=== PATIENT | male | born 1955 | race Caucasian/White ===

== ENCOUNTER 2025-02-19 17:58 | Emergency (ER) | payer MEDICARE, SELFPAY ==
--- NOTE | ~2025-02-19 | XR_ITS ---
XR chest 2V Ordering provider: Reinaldo Perea MD History: 69 years Male with . chest pain, weakness . Comparison: None. FINDINGS: MEDIASTINUM: The cardiac silhouette is not enlarged. Postoperative changes in the mediastinum. LUNGS: No infiltrates, effusions or pneumothorax. Underlying emphysematous changes. OTHER: No free air under the diaphragm. Degenerative changes of the spine. IMPRESSION: No acute cardiopulmonary pathology. Reviewed, dictated and finalized at location A.
[2025-02-19 17:59] VITALS: BP 122/66; PULSE 75; RESP 16; TEMP 36.4; O2SAT 100
--- NOTE | 2025-02-19 18:05 | ECG_ITS ---
Test Date: 2025-02-19 18:07:31 Measurements Intervals [place] Rate: 72 P: 76 ME: 182 QRS: 5 QRSD: 98 T: 87 QT: 370 QTc: 406 Interpretive Statements SINUS RHYTHM POSSIBLE RIGHT VENTRICULAR CONDUCTION DELAY [RSR (QR) IN V1/V2] NONSPECIFIC T-WAVE ABNORMALITY No previous ECG available for comparison Electronically Signed On 02-20-2025 16:33:13 CDT by Herve Mcgovern M.D.
[2025-02-19 18:29] LABS: Basophils Percent Auto 0.3 % (0.2-1.2); Eosinophils Absolute Auto 0.1 K/mm3 (0-0.3); Eosinophils Percent Auto 2.4 % (0-4.4); Hematocrit 33.7 % (42.0-52.0); Hemoglobin 11.1 g/dL (14.0-18.0); Immature Granulocyte Absolute 0.01 K/mm3 (0.00-0.031); Immature Granulocyte Percent A 0.3 % (0-0.5); Lymphocytes Absolute Auto 1.77 K/mm3 (0.9-3.2); Lymphocytes Percent Auto 52.5 % (18.3-44.2); Mean Corpuscular HGB Conc 32.9 g/dl (32-36); Mean Corpuscular Volume 91.1 fl (80-100); Mean Platelet Volume 9.8 fl (7.4-10.4); Monocytes Absolute Auto 0.2 K/mm3 (0.1-0.6); Monocytes Percent Auto 6.2 % (2.6-8.5); Neutrophils Absolute Auto 1.3 K/mm3 (1.3-6.7); Neutrophils Percent Auto 38.3 % (45.5-73.1); Platelet Count Result 119 k/mm3 (150-375); Red Cell Distribution Width 13.6 % (11.5-14.5); White Blood Count 3.4 K/mm3 (4.5-10.0)
[2025-02-19 18:39] LABS: Alanine Aminotransferase 24 U/L (6-50); Albumin Level 4.7 g/dL (3.5-5.1); Alkaline Phosphatase 50 U/L (38-126); Anion Gap 11 mmol/L (4-12); Aspartate Amino Transferase 40 U/L (17-59); Bilirubin,Total 0.3 mg/dL (0.2-1.3); Blood Urea Nitrogen 41 mg/dL (9-20); Calcium 9.9 mg/dL (8.4-10.2); Carbon Dioxide 22 mmol/L (22-30); Chloride 102 mmol/L (98-107); Estimated Glomerular Filt Rate > 60; Glucose 98 mg/dL (65-110); INR 0.9; Lipase 168 U/L (23-300); Potassium 3.9 mmol/L (3.4-5.0); Prothrombin Time 12.7 Seconds (11.1-14.7); Sodium 135 mmol/L (137-145)
[2025-02-19 18:51] LABS: Troponin I < 0.012 ng/mL (0.000-0.034)
--- NOTE | 2025-02-19 20:39 | ECG_ITS ---
Test Date: 2025-02-19 21:11:47 Measurements Intervals [place] Rate: 71 P: 77 [place]: 174 QRS: 27 QRSD: 99 T: 79 QT: 388 QTc: 424 Interpretive Statements SINUS RHYTHM POSSIBLE RIGHT VENTRICULAR CONDUCTION DELAY [RSR (QR) IN V1/V2] NONSPECIFIC T-WAVE ABNORMALITY Compared to ECG 02/19/2025 18:07:31 NO SIGNIFICANT CHANGES Electronically Signed On 02-20-2025 16:35:43 CDT by Herve Mcgovern M.D.
--- NOTE | 2025-02-19 20:40 | PC.NURSE ---
of patient reporting patient has not had night meds and that patient reporting a little more chest pain. Patient does not appear in any distress. Patient is scheduled for 3hr Trop/ekg shortly. patient and family is aware
[2025-02-19 21:13] VITALS: BP 116/67; PULSE 68; RESP 16; TEMP 36.6; O2SAT 99
[2025-02-19 21:51] LABS: Troponin I < 0.012 ng/mL (0.000-0.034)
--- NOTE | 2025-02-19 22:41 | ED.CHESTPAIN ---
HPI - Chest Pain General Chief Complaint: Chest Pain Stated Complaint: Chest pain Time Seen by Provider: 02/19/25 22:22 History of Present Illness HPI narrative: 69-year-old male with a past medical history including coronary artery disease with a CABG, mild cognitive impairment and dementia as well as hypertension. Patient presents to the emergency department with complains of chest pain that occurred prior to arrival. Patient has a history of dementia not able to articulate very well but his is present at bedside provides collateral formation. It was believed that patient's blood pressure was slightly high in the 150s region today and patient's family called ambulance for assistance as they were concerned he might be having chest pain. Patient was self denies any chest pain or shortness a breath at this time. On my initial assessment the patient he states that he has no symptoms and wishes to go home. He appears at his baseline mentation and acting appropriately according to present at bedside. Patient did yet aspirin prior to arrival although he has a suspected allergy to this he has not had any adverse reactions and observed here for multiple hours. Patient denies any headache, vision changes, chest pain, shortness of breath, nausea, vomiting, abdominal pain, extremity pain. Patient reportedly has a history of dysautonomia and follows up with the [facility] system or his director of physician practices is located. Related Data Allergies Allergy/AdvReac Type Severity Reaction Status Date / Time aspirin Allergy Severe Swelling Verified 02/19/25 18:00 of Lip/Tongue/Throat levofloxacin (From Levaquin) Allergy Intermediate Hives Verified 02/19/25 18:00 Review of Systems Review of Systems: As reviewed above in HPI Exam Narrative: GENERAL: [Well-appearing, well-nourished, and in no acute distress.] HEAD: [Normocephalic, atraumatic.] EYES: [PERRLA and EOMI.] ENT: Nares clear, no rhinorrhea or epistaxis. Mucous membranes moist. NECK: Supple. CHEST: [Clear to auscultation. No respiratory distress.] HEART: [Regular rate and rhythm]. No murmur heard. [Normal peripheral pulses.] ABDOMEN: [Soft, nondistended], [nontender], [No rigidity or guarding] EXTREMITIES: Normal range of motion. [No edema.] SKIN: Warm, dry, no rash. NEURO: [No focal deficits]. Alert and oriented as baseline mentation x3. History of mild cognitive impairment/dementia. Moving all extremities without any difficulty. PSYCH: [Normal mood and affect.] Course Vital Signs Vital signs: Vital Signs Temperature 36.4 C 02/19/25 17:59 Pulse Rate 75 02/19/25 17:59 Respiratory Rate 16 02/19/25 17:59 Blood Pressure 122/66 02/19/25 17:59 Pulse Oximetry 100 02/19/25 17:59 Oxygen Delivery Room Air 02/19/25 17:59 Temperature 36.9 C 02/19/25 22:55 Pulse Rate 87 02/19/25 22:55 Respiratory Rate 18 02/19/25 22:55 Blood Pressure 145/66 H 02/19/25 22:55 Pulse Oximetry 98 02/19/25 23:08 Oxygen Delivery Room Air 02/19/25 23:08 MDM - Chest Pain MDM Narrative Medical decision making narrative: 69-year-old male with a history of cardiac disease including coronary artery disease, bypass grafting, stents, hypertension. He also has a history of mild cognitive impairment and dementia as well as dysautonomia. He follows closely with the [facility] system and his director of physician practices is located across there. Patient reportedly had elevated blood pressure reading in the 150s today and family was concerned that he might be having some chest pain. Patient self denies any complaints such as chest pain, shortness short of breath, abdominal pain. Patient has no symptoms at this time and is expressing desire to go home. He is acting as baseline mentation from his cognitive impairment according to the family member at bedside. Family is well-versed and takes good care of him including giving him his medications schedule. Patient did get aspirin prior to arrival and was observed here for multiple hours without any allergic reaction or anaphylaxis type symptoms. He has no symptomatology at this time on my reassessment and has normal vital signs in triage and on multiple reassessments. No tachycardia, fever, hypoxia. Strong symmetric pulses, no signs of leg swelling. Differential diagnosis includes musculoskeletal chest pain, pleurisy, bronchitis, pneumonia, ACS, angina, less likely PE and his low Wells criteria for this. Multiple troponins were ordered, EKG, chest x-ray, CBC, CMP, lipase. Patient was observed for numerous hours here in the ED. Workup shows no leukocytosis or significant anemia but no baseline to compare to sent in our system. Coagulation panel is normal. Normal electrolytes, normal creatinine, normal glucose, normal LFTs. Negative initial troponin, negative 3 hour troponin negative lipase. His initial EKG and 3 hour EKG showed no signs of acute occlusive [place]. chest x-ray shows no acute cardiopulmonary pathology. Patient re-evaluated and again has no symptomatology. Expressing desire for discharge. Discussed with the family member about close outpatient Cardiology follow-up which they will arrange and felt comfortable going home at this time. There were given strict return precautions including recurrence of his chest pain or any new developing symptoms and encouraged to come back to the ER at that time. Patient safely discharged home at this time and family's questions were answered. Medical Records Data Attestation: I reviewed the patient's medical records. Lab Data Attestation: I reviewed the patient's lab results. 02/19/25 18:12 02/19/25 18:12 Labs: Lab Results 02/19/25 02/19/25 Range/Units 18:12 21:15 WBC 3.4 L (4.5-10.0) K/mm3 RBC 3.70 L (4.6-6.20) M/mm3 Hgb 11.1 L (14.0-18.0) g/dL Hct 33.7 L (42.0-52.0) % MCV 91.1 (80-100) fl MCH 30.0 (26-34) pg MCHC 32.9 (32-36) g/dl RDW 13.6 (11.5-14.5) % Plt Count 119 L (150-375) k/mm3 MPV 9.8 (7.4-10.4) fl Immature Gran % (Auto) 0.3 (0-0.5) % Neut % (Auto) 38.3 L (45.5-73.1) % Lymph % (Auto) 52.5 H (18.3-44.2) % [place] % (Auto) 6.2 (2.6-8.5) % Eos % (Auto) 2.4 (0-4.4) % Baso % (Auto) 0.3 (0.2-1.2) % Lymph # (Auto) 1.77 (0.9-3.2) K/mm3 [place] # (Auto) 0.2 (0.1-0.6) K/mm3 Eos # (Auto) 0.1 (0-0.3) K/mm3 Baso # (Auto) 0.0 (0.0-0.1) K/mm3 Abs Immat Gran (auto) 0.01 (0.00-0.031) K/mm3 Absolute Neuts (auto) 1.3 (1.3-6.7) K/mm3 Absolute Nucleated RBC 0.000 (0.0-0.012) K/mm3 Nucleated RBC % 0.0 (0.0-0.2) % PT 12.7 (11.1-14.7) Seconds INR 0.9 APTT 27.0 (22.3-36.8) Seconds Sodium 135 L (137-145) mmol/L Potassium 3.9 (3.4-5.0) mmol/L Chloride 102 (98-107) mmol/L Carbon Dioxide 22 (22-30) mmol/L Anion Gap 11 (4-12) mmol/L BUN 41 H (9-20) mg/dL Creatinine 0.88 (0.7-1.3) mg/dL Estim Creat Clear Calc Not Reportable Estimated GFR > 60 (59 - ) Glucose 98 (65-110) mg/dL Calcium 9.9 (8.4-10.2) mg/dL Total Bilirubin 0.3 (0.2-1.3) mg/dL AST 40 (17-59) U/L ALT 24 (6-50) U/L Alkaline Phosphatase 50 (38-126) U/L Troponin I < 0.012 < 0.012 (0.000-0.034) ng/mL Total Protein 8.0 (6.3-8.2) g/dL Albumin 4.7 (3.5-5.1) g/dL Lipase 168 (23-300) U/L Imaging Data Attestation: I personally reviewed and interpreted this imaging study as follows: My impression: Impressions Chest X-Ray 02/19/25 18:22 IMPRESSION: No acute cardiopulmonary pathology. ECG Data EKG #1: Attestation: I personally reviewed and interpreted this ECG as follows: ECG completion date: 02/19/25 ECG completion time: 18:07 Prior ECG tracings: not available for review Interpretation: No ST segment elevations, depressions or acute inversions. Normal QTC interval. QTC 406, QRS 98, LA interval 182. Sinus rhythm. Good R-wave progression throughout. No signs of acute occlusive [place]. Discharge Plan Discharge Clinical Impression: Atypical chest pain, History of coronary artery bypass graft Patient Disposition: Home Condition: Stable Instructions: Antibiotic Form, Chest Pain (ED) Additional Instructions: Your cardiac markers, (troponin) was undetectable x2 here in the emergency department. Your EKG did not show any signs of any acute occlusive disease or dysrhythmia. If you have any recurrence in your chest pain or any new symptoms such as shortness of breath, jaw pain, arm pain, passing out episodes or any other concerns please return to the emergency department otherwise follow-up closely with your director of physician practices at [facility]. Take your regular prescribed medications when he gets home and inquire with his director of physician practices about starting aspirin if this is not truly an allergy that you have. Patient Language: Persian Follow-up/Referrals: PHYSICIAN NOT ON STAFF,NONSTAFF [Primary Care Provider] - Time of Disposition: 22:40
--- OUTSIDE RECORDS SUMMARY | 2025-02-19 22:54 | XMS_ITS | Referral Summary ---
Author Organization [facility] Address [address] [place] [id number] Care Team Providers Care Pin Chaser Name Role Phone Kyle Chiu MD Primary Care Provider [phone] Encounters Date Type Department Care Team Description 02/15/2025 Telephone [facility] [address] [place] [address] [address] [place] [address] Kyle Chiu MD Cough 02/12/2025 Results Follow-Up [facility] [address] [place] [address] [address] [place] [address] Aissatou Strong NP CBC with auto differential, Comprehensive metabolic panel, Thyroid Function Stanly, XR Chest PA Lateral 2 Views 02/12/2025 12:00 PM CDT Ancillary Procedure [facility] Imaging at [address] [address] Acute cough 02/12/2025 10:15 AM CDT Office Visit [facility] [address] [place] [address] [address] [place] [address] Aissatou Strong NP Acute cough (Primary Dx); Hypothyroidism, unspecified type; Primary hypertension; Mild intermittent asthma, unspecified whether complicated; Coronary artery disease involving coyote valley coronary artery of coyote valley heart without angina pectoris 02/11/2025 Telephone [facility] [address] [place] [address] 8th [place] [address] [place] [address] Roberto Velásquez MD 01/31/2025 Orders Only [facility] [address] [facility] [address] [place] [address] Kyle Chiu MD Benign prostatic hyperplasia with nocturia (Primary Dx) 01/28/2025 10:40 AM CDT Office Visit [facility] [address] [place] [address] Angelina Orr MD Lower urinary tract symptoms (LUTS) (Primary Dx) 01/21/2025 Telephone [facility] [address] [place] [address] 8th [place] [address] [place] [address] Martha York 01/20/2025 Telephone [facility] [address] [place] [phone] Stephanie Powell MD 01/14/2025 Orders Only [facility] [address] [place] [phone] Kyle Chiu MD 01/03/2025 Telephone [facility] [address] [place] [address] 8th [place] [address] [place] [address] Roberto Velásquez MD 01/02/2025 Orders Only [facility] [address] [facility] [address] [place] [address] Angelina Orr MD Benign prostatic hyperplasia with lower urinary tract symptoms, symptom details unspecified 01/01/2025 4:15 PM CDT [facility] [address] [address] Kyle Chiu MD Coronary artery disease involving coyote valley coronary artery of coyote valley heart without angina pectoris (Primary Dx); Pulmonary nodules; Mild intermittent asthma, unspecified whether complicated; Hypothyroidism, unspecified type; Small fiber neuropathy; Benign prostatic hyperplasia with nocturia 12/28/2024 Telephone [facility] [address] [facility] 6th [address] [place] [phone] Margarita Marina RN 12/17/2024 Orders Only [facility] [address] [facility] [address] [place] [phone] Kyle Chiu MD 12/03/2024 Results Follow-Up [facility] [address] [facility] [address] [place] [phone] Kyle Chiu MD Measles IgG antibody Blood 11/30/2024 4:06 PM AUTOMOBILE GLASS TECHNICIAN - 11/30/2024 11:59 PM AUTOMOBILE GLASS TECHNICIAN Hospital Encounter [address] [address] Screening for measles Discharge Disposition: Discharge to home or self care 11/30/2024 12:00 PM AUTOMOBILE GLASS TECHNICIAN Lab [facility] Outpatient Lab at [address] [address] Severe persistent asthma without complication (HCC) (Primary Dx) from Last 3 Months Allergies Active Allergy Reactions Criticality Noted Date Comments Aspirin Anaphylaxis,Shortness of breath High 04/26 Levofloxacin Hives Medium 05/09/2019 Medications tamsulosin (FLOMAX) 0.4 mg extended release capsule Take 1 capsule (0.4 mg total) by mouth 2 (two) times a day 4 Active metoprolol XL (TOPROL-XL) 25 mg extended release tablet Take 1 tablet (25 mg total) by mouth daily 3 Active lisinopriL (PRINIVIL,ZESTR IL) 5 mg tablet Take 1 tablet (5 mg total) by mouth nightly 4 Active levothyroxine (SYNTHROID) 25 mcg tablet Take 1 tablet (25 mcg total) by mouth daily 4 Active fluticasone propionate (FLONASE) 50 mcg/actuation nasal spray Administer 2 sprays into affected nostril(s) daily Active ferrous sulfate 325 mg (65 mg of elemental iron) tablet Take 1 tablet (325 mg total) by mouth daily 3 Active fenofibrate (TRICOR) 54 mg tablet Take 1 tablet (54 mg total) by mouth daily 4 Active famotidine (PEPCID) 20 mg tablet Take 1 tablet (20 mg total) by mouth daily 1 Active clopidogreL (PLAVIX) 75 mg tablet Take 1 tablet (75 mg total) by mouth daily 4 Active ammonium lactate (LAC-HYDRIN) 12 % lotion Apply topically as needed 2 Active Lactobac. rhamnosus GG-inulin 10 billion cell -200 mg tablet,chewable Take by mouth Probiotic Active amLODIPine (NORVASC) 10 mg tablet Take 1 tablet (10 mg total) by mouth daily Active immune globulin (PRIVIGEN) infusion Infuse into a venous catheter as directed Active memantine (NAMENDA) 10 mg tablet Take 1.5 tablets (15 mg total) by mouth daily 45 tablet 5 5 Active mirtazapine (REMERON) 30 mg tablet Take 1 tablet (30 mg total) by mouth nightly 30 tablet 5 5 Active galantamine ER (RAZADYNE ER) 16 mg 24 hr capsule Take 1 capsule (16 mg total) by mouth daily with breakfast 30 capsule 5 5 Active ipratropium-alb uteroL (DUO-NEB) 0.5-2.5 mg/3 mL nebulizer solution TAKE 3 ML BY NEBULIZATION 3 TIMES A DAY NEEDED FOR WHEEZING OR SHORTNESS OF BREATH J45.20 90 mL 2 5 Active budesonide-form oteroL (SYMBICORT) 160-4.5 mcg/actuation inhaler Inhale 2 puffs every 12 (twelve) hours 2 each 3 5 Active montelukast (SINGULAIR) 10 mg tablet Take 1 tablet (10 mg total) by mouth daily 90 tablet 1 5 Active albuterol HFA (PROVENTIL HFA,VENTOLIN HFA,PROAIR HFA) 90 mcg/actuation inhaler Inhale 2 puffs every 4 (four) hours as needed for wheezing 1 each [address] (PROTONIX) 40 mg EC tablet Take 1 tablet (40 mg total) by mouth daily 90 tablet 1 5 Active finasteride (PROSCAR) 5 mg tabletIndicatio ns:Benign prostatic hyperplasia with lower urinary tract symptoms, symptom details unspecified Take 1 tablet (5 mg total) by mouth daily 30 tablet 3 5 Active rosuvastatin (CRESTOR) 20 mg tablet Take 1 tablet (20 mg total) by mouth daily 90 tablet 3 5 Active ipratropium (ATROVENT) 0.02 % nebulizer solution TAKE 2.5 ML BY NEBULIZATION 3 TIMES DAILY NEEDED FOR SHORTNESS OF BREATH OR WHEEZING. 5 Active tamsulosin (FLOMAX) 0.4 mg extended release capsuleIndicati ons:Lower urinary tract symptoms (LUTS) Take 1 capsule (0.4 mg total) by mouth 2 (two) times a day 180 capsule 3 5 04/28/20 25 Active cefdinir (OMNICEF) 300 mg capsule Take 1 capsule (300 mg total) by mouth 2 (two) times a day for 10 days 20 capsule 5 02/26/20 25 Active Hospital, Clinic, or Other Facility Administered Medication Ordered Dose Route Frequency Start Date End Date Status perflutren protein-a (OPTISON) 3 mL in sodium chloride 0.9% 8 mL syringe 1 - 8 mL IV Once in imaging 09/18/2024 Active Active Problems Problem Noted Date Diagnosed Date Benign prostatic hyperplasia with nocturia 01/01 Hypothyroidism 01/01/2025 Mild intermittent asthma 01/01/2025 Pulmonary nodules 01/01/2025 Coronary artery disease invo lving coyote valley coronary artery of coyote valley heart without angina pectoris 01/01/2025 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 09/03/2024 Severe persistent asthma without complication Small fiber neuropathy 09/03/2024 Immunizations Immunization Administration Dates Next Due Hep A, Adult 11/21/2019 Hep B Vaccine 11/21/2019 Influenza, Quadrivalent, Hig h Dose, Preservative Free, Intrr 07/01/2023,06/19/2022 Influenza, Quadrivalent, Spl it, Preservative Free, Intramuscular 06/22/2020,06/04/2019 Influenza, Trivalent, Adjuvanted, Intramuscular 07/23/2024 Influenza, Trivalent, High D ose, Split, Preservative Free, Intramuscular 06/07/2021 Pfizer Sars-Cov-2 Bivalent Vaccination (12+ YRS) 06/19/2022 Pneumococcal Conjugate, Unspecified 06/25/2022 Sars-cov-2 Covid-19 Mrna, Bi valent, Original/omicron Ba.1 06/25/2023 Tdap 11/21/2019 Social History Tobacco Use Types Packs/Day Years Used Date Smoking Tobacco: Former Cigarettes Tobacco Cessation:Counseling Given: Not Answered AUDIT-C Answer Date Recorded Q1: How often do you have a drink containing alcohol? Never 09/03/2024 Q2: How many drinks containi ng alcohol do you have on a typical day when you are drinking? Patient does not drink Q3: How often do you have si x or more drinks on one occasion? Never 09/03/2024 Sex and Gender Information Value Date Recorded Sex Assigned at Not on file Legal Sex Male 3:28 PM CDT Gender Identity Not on file Sexual Orientation Not on file Last Filed Vital Signs Vital Sign Reading Time Taken Comments Blood Pressure 111/62 02/12/2025 10:10 AM CDT Pulse 69 02/12/2025 10:10 AM CDT Temperature 36.9 C (98.5 F) 02/12/2025 10:10 AM CDT Respiratory Rate - - Oxygen Saturation 98% 02/12/2025 10:10 AM CDT Inhaled Oxygen Concentration - - Weight 61.2 kg (135 lb) 02/12/2025 10:10 AM CDT Height 175.3 cm (5' 9) 02/12/2025 10:10 AM CDT Body Mass Index 19.94 02/12/2025 10:10 AM CDT Plan of Treatment Not on file Procedures Procedure Name Priority Date/Time Associated Diagnosis Comments XR CHEST PA LATERAL 2 VIEWS Schedule Routine, Read Routine (OP Routine) 02/12/2025 11:54 AM CDT Acute cough THYROID FUNCTION CASCADE Routine 02/12/2025 10:32 AM CDT Hypothyroidism, unspecified type COMPREHENSIVE METABOLIC PANEL Routine 02/12/2025 10:32 AM CDT Primary hypertension CBC WITH AUTO DIFFERENTIAL Routine 02/12/2025 10:32 AM CDT Primary hypertension MEASLES IGG ANTIBODY Routine 11/30/2024 9:36 AM AUTOMOBILE GLASS TECHNICIAN Screening for measles from Last 3 Months Results * XR Chest PA Lateral 2 Views (02/12/2025 11:54 AM CDT) Anatomical Region Laterality Modality Body, Chest N/A Digital Radiogra phy 02/12/2025 4:44 PM CDT Narrative 02/12/2025 4:44 PM CDT EXAM DESCRIPTION: XR CHEST PA LATERAL 2 VIEWS REASON FOR STUDY: Pt complains of cough x 1 week, having tachycardia recently. Hx stents and CABG x 4 times. Hx asthma,CAD. No cancer or copd. Former social smoker in his teens. TECHNIQUE: PA and lateral radiographic view(s) of the chest. COMPARISON: None FINDINGS: LUNGS: No focal opacity, pleural effusion, or pneumothorax. HEART/MEDIASTINUM: Cardiac silhouette normal in size. Mediastinal and hilar contours appear normal. LINES/TUBES: None. BONES: Wire sternal sutures are consistent with prior Cardiothoracic surgery. IMPRESSION: No acute cardiopulmonary abnormality. THIS IS AN ELECTRONICALLY VERIFIED FINAL REPORT 02/12/2025 4:44 PM - Electronically signed by Brendan Manuel M.D. BS T: Report ID: [id number] Reading Location: [id number] Procedure Note Brendan Manuel MD - 02/12/2025 EXAM DESCRIPTION: XR CHEST PA LATERAL 2 VIEWS REASON FOR STUDY: Pt complains of cough x 1 week, having tachycardia recently. Hx stents and CABG x 4 times. Hx asthma,CAD. No cancer or copd. Former social smoker inhis teens. TECHNIQUE: PA and lateral radiographic view(s) of the chest. COMPARISON: None FINDINGS: LUNGS: No focal opacity, pleural effusion, or pneumothorax. HEART/MEDIASTINUM: Cardiac silhouette normal in size. Mediastinal andhilar contours appear normal. LINES/TUBES: None. BONES: Wire sternal sutures are consistent with prior Cardiothoracicsurgery. IMPRESSION: No acute cardiopulmonary abnormality. THIS IS AN ELECTRONICALLY VERIFIED FINAL REPORT 02/12/2025 4:44 PM - Electronically signed by Brendan Manuel M.D. BS T: Report ID: [id number] Reading Location: [place] [address] us Aissatou Strong CPA TAX IMG XR PROCEDURES Final Resul t * Thyroid Function Stanly (02/12/2025 10:32 AM CDT) TSH 1.52 0.27 - 4.20 uIU/mL [facility] Blood 02/12/2025 10:3 2 AM CDT 02/12/2025 10:54 AM CDT us Aissatou Strong CPA TAX LAB BLOOD ORDERABLES Final Re sult [facility] [address] [address] * (ABNORMAL) CBC with auto differential (02/12/2025 10:32 AM CDT) WBC 4.3 3.5 - 10.0 K/uL [facility] RBC 3.87(L) 4.60 - 6.20 M/uL [facility] Hemoglobin 11.8(L) 13.9 - 17.7 g/dL [facility] Hematocrit 33.7(L) 35.0 - 55.0 % [facility] MCV 87.0 75.0 - 100.0 fL [facility] MCH 30.50 25.00 - 35.00 pg [facility] MCHC 35.10 31.00 - 38.00 g/dL [facility] RDW 13.2 11.0 - 16.0 % [facility] Platelets 134(L) 140 - 400 K/uL [facility] MPV 9.7 8.0 - 11.0 fL [facility] Granulocyte, Absolute 2.5 1.2 - 8.0 K/uL [facility] Lymphocyte, Absolute 1.4 0.5 - 5.0 K/uL [facility] Monocyte, Absolute 0.4 0.1 - 1.5 K/uL [facility] Granulocyte, Percentage 59.5 35.0 - 80.0 % [facility] Lymphocyte, Percentage 33.5 15.0 - 50.0 % [facility] Monocyte, Percentage 7.0 2.0 - 15.0 % [facility] Blood 02/12/2025 10:3 2 AM CDT 02/12/2025 10:54 AM CDT us Aissatou Strong CPA TAX LAB BLOOD ORDERABLES Final Re sult [facility] [address] [address] * (ABNORMAL) Comprehensive metabolic panel (02/12/2025 10:32 AM CDT) Glucose 83 74 - 200 mg/dL [facility] BUN 34(H) 18 - 23 mg/dL [facility] Creatinine 0.9 0.7 - 1.3 mg/dL [facility] BUN/Creat Ratio 37 Ratio [facility] Bilirubin, Total 0.3 0.0 - 1.2 mg/dL [facility] AST (SGOT) 24 0 - 40 U/L [facility] ALT (SGPT) 18 10 - 50 U/L [facility] Alkaline phosphatase 51 40 - 129 U/L [facility] Calcium 9.9 8.8 - 10.2 mg/dL [facility] Sodium 137 135 - 145 mEq/L [facility] Potassium 4.5 3.5 - 5.1 mEq/L [facility] Chloride 103 98 - 107 mEq/L [facility] CO2 24.4 22.0 - 32.0 mEq/L [facility] Anion Gap 10 3 - 12 mEq/L [facility] Total Protein 7.2 6.0 - 8.1 g/dL [facility] Albumin 4.6 3.5 - 5.2 g/dL [facility] Globulin 2.6 g/dL [facility] Albumin/Globulin 1.8 Ratio [facility] eGFR 90.61 [facility] Blood 02/12/2025 10:3 2 AM CDT 02/12/2025 10:54 AM CDT us Aissatou Strong CPA TAX LAB BLOOD ORDERABLES Final Re sult [facility] [address] [address], [facility] * Measles IgG antibody Blood (11/30/2024 9:36 AM AUTOMOBILE GLASS TECHNICIAN) Measles IgG Reactive Comment: Reactive: Results suggest response to immunization or prior exposure to the virus. Testing performed by: [facility], [address] [place] [address]., [id number] Blood 11/30/2024 9:36 AM AUTOMOBILE GLASS TECHNICIAN 12/03/2024 9:52 AM CDT us Kyle Chiu MD LAB MICROBIOLOGY - GENERAL OR DERABLES Final Result [facility] [address] [place] [address] from Last 3 Months Insurance MEDICARE AET SENIOR SUPPLEMENT MEDICARE [facility] SENIOR SUPPLEMENT MEDICARE [employer] SENIOR SUPPLEMENT MEDICARE [employer] SENIOR SUPPLEMENT Care Teams Pin Chaser Relationship Specialty Start Date End Date Kyle Chiu MD PCP - General Internal Medicine 09/20/24
--- OUTSIDE RECORDS SUMMARY | 2025-02-19 22:54 | XMS_ITS | Encounter Summary ---
Author Organization [facility] Address [address] [place] [address] Phone Care Team Providers Care Care Analyst Name Role Phone Kyle Chiu MD Primary Care Provider Encounter Details Date Type Department Care Team (Late st Contact Info) Description 02/11/2025 Telephone [facility] Cardiology [address] [facility] Advanced [facility] 8th [place] [address] [place] [phone] Roberto Velásquez MD [address] [facility] [address] [place], [place] [id number] Social History Tobacco Use Types Packs/Day Years Used Date Smoking Tobacco: Former Cigarettes AUDIT-C Answer Date Recorded Q1: How often [...] on file Sexual Orientation Not on file documented as of this encounter Miscellaneous Notes * Telephone Encounter - Elda Stern RN - 02/12/2025 3:36 PM CDT Called pt to discuss His heart rate and bp seems to be a little higher than normal. 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 Did labs and chest xray today Bp 128/76, 82 yesterday afternoon Low grade fever 99.6 This am 106/72, HR 69 30 min later 110/69, HR 77 * Telephone Encounter - Florecita Moyer - 02/11/2025 11:56 AM CDT Didier Pt's spouse calling stating he sent [employer] messages and would like to follow up on this. Please call to advise about symptoms. Would also like to discuss pt's future of care with the team and how [place] if [place] should move [place]. Please call to advise. documented in this encounter Plan of Treatment Not on file documented as of this encounter Visit Diagnoses Not on filedocumented in this encounter Care Teams Care Analyst Relationship Specialty Start Date End Date Kyle Chiu MD PCP - General Internal Medicine 09/20/24 documented as of this encounter
--- OUTSIDE RECORDS SUMMARY | 2025-02-19 22:54 | XMS_ITS | Clinical Summary ---
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 09/03/2024 Severe persistent asthma without complication Small fiber neuropathy 09/03/2024 Encounters Date Type Department Care Team Description 02/15/2025 Telephone [facility] [address] [place] [address] [address] [place] [address] Kyle Chiu MD Cough 02/12/2025 12:00 PM CDT Ancillary Procedure [facility] Imaging at [address] [phone] Acute cough 02/12/2025 10:15 AM CDT Office Visit [facility] [address] [place] [address] [address] [place] [address] Aissatou Strong NP Acute cough (Primary Dx); Hypothyroidism, unspecified type; Primary hypertension; Mild intermittent asthma, unspecified whether complicated; Coronary artery disease involving alutiiq coronary artery of alutiiq heart without angina pectoris 02/12/2025 Results Follow-Up [facility] [address] [facility] [address] [place] [phone] Aissatou Strong NP CBC with auto differential, Comprehensive metabolic panel, Thyroid Function [place], XR Chest PA Lateral 2 Views 02/11/2025 [address] [place] [id number] [facility] 8th [place] [address] [place] [phone] Roberto Velásquez MD 01/31/2025 Orders Only [facility] [address] [place] [address] [address] [place] [phone] Kyle Chiu MD Benign prostatic hyperplasia with nocturia (Primary Dx) 01/28/2025 10:40 AM CDT Office Visit [facility] Surgery [address] [place] [address] [address] [place] [address] Angelina Orr MD Lower urinary tract symptoms (LUTS) (Primary Dx) 01/21/[address] [place] [address] [place] [phone] Martha York 01/20/2025 Telephone [facility] [address] [place] [address] Stephanie Powell MD 01/14/2025 Orders Only [facility] [place] [phone] Kyle Chiu MD 01/03/[address] [place] [address] [place] [phone] Roberto Velásquez MD 01/02/2025 Orders Only [facility] Surgery [address] [place] [address] [address] [place] [address] Angelina Orr MD Benign prostatic hyperplasia with lower urinary tract symptoms, symptom details unspecified 01/01/2025 4:15 PM CDT Telemedicine [facility] [address] [facility] [address] [place] [address] Kyle Chiu MD Coronary artery disease involving alutiiq coronary artery of alutiiq heart without angina pectoris (Primary Dx); Pulmonary nodules; Mild intermittent asthma, unspecified whether complicated; Hypothyroidism, unspecified type; Small fiber neuropathy; Benign prostatic hyperplasia with nocturia 12/28/2024 Telephone [facility] [address] [facility] 6th [address] [place] [phone] Margarita Marina RN 12/17/2024 Orders Only [facility] [address] [place] [phone] Kyle Chiu MD 12/03/2024 Results Follow-Up [facility] [address] [address] Kyle Chiu MD Measles IgG antibody Blood 11/30/2024 4:06 PM SLOTTER OPERATOR - 11/30/2024 11:59 PM SLOTTER OPERATOR Hospital Encounter [address] [address] Screening for measles Discharge Disposition: Discharge to home or self care 11/30/2024 12:00 PM SLOTTER OPERATOR Lab [facility] Outpatient Lab at [address] [address] Severe persistent asthma without complication (HCC) (Primary Dx) from Last 3 Months Immunizations Immunization Administration Dates Next Due Hep [...] Bi valent, Original/omicron Ba.1 06/25/2023 Tdap 11/21/2019 Surgical History Surgery Date Site/Laterality Comments CARDIAC SURGERY HERNIA REPAIR HAND SURGERY SINUS SURGERY Medical History Medical History Date Comments Heart disease Hyperlipidemia Hypertension Asthma Family History Medical History Relation Name Comments Lymphoma Brother Heart disease Father Alzheimer's disease Mother Colon cancer Mother Relation Name Status Comments Brother Father Mother Social History Tobacco Use Types Packs/Day Years [...] on file Sexual Orientation Not on file Obstetrics History Last Filed Vital Signs Vital Sign Reading [...] 02/12/2025 10:10 AM CDT Plan of Treatment Health Maintenance Due Date Last Done Comments Depression Screening 1955 Fall Risk Assessment 1955 Hepatitis C Screening 1955 Prostate Cancer Screening-PSA 1955 Zoster Vaccine (1 of 2) 1975 Well Visit 65+ 2021 Pneumococcal vaccine 65+ (2 of 2 - PPSV23) 08/20/2022 06/25/2022 Covid-19 Vaccine (2023-2 5 season) 2024 06/25/2023, 06/19/2022, 01/02/2022, Additional history exists Colon Cancer Screening-Colonoscopy 06/06/2027 DTaP/Tdap/Td Vaccine (2 - Td or Tdap) 11/21/2029 11/21/2019 Hepatitis B Screening Completed 11/21/2019 Abdominal Aortic Aneurysm (A AA) Screen Completed 05/05/2022 Influenza Vaccine Completed 07/23/2024, , 06/19/2022, Additional history exists Procedures Procedure Name Priority Date/Time Associated Diagnosis [...] MEASLES IGG ANTIBODY Routine 11/30/2024 9:36 AM SLOTTER OPERATOR Screening for measles from Last 3 Months [...] Brendan Manuel M.D. BS T: Report ID: [id number] Reading Location: [id number] Procedure Note Brendan Manuel MD - 02/12/2025 [...] Brendan Manuel M.D. BS T: Report ID: [id number] Reading Location: [place] [address] Aissatou Strong EDUCATION MANAGER IMG XR PROCEDURES Final Resul t * Thyroid Function [place] (02/12/2025 10:32 AM CDT) TSH 1.52 0.27 - 4.20 uIU/[facility] 02/12/2025 10:3 2 AM CDT 02/12/2025 10:54 AM CDT Aissatou tSrong EDUCATION MANAGER LAB BLOOD ORDERABLES Final Re sult [facility] [address] [facility] [address] [place] [phone], [facility] * (ABNORMAL) CBC with auto differential (02/12/2025 [...] 02/12/2025 10:54 AM CDT us Aissatou Strong EDUCATION MANAGER LAB BLOOD ORDERABLES Final Re sult [facility] [address] [facility] [address] [address], [facility] * (ABNORMAL) Comprehensive metabolic panel (02/12/2025 10:32 [...] 2 AM CDT 02/12/2025 10:54 AM CDT Aissatou Strong EDUCATION MANAGER LAB BLOOD ORDERABLES Final Re sult [facility] [address] [phone] * Measles IgG antibody Blood (11/30/2024 9:36 AM SLOTTER OPERATOR) Measles IgG Reactive Comment: Reactive: Results suggest response to immunization or prior exposure to the virus. Testing performed by: [facility], [address] [place] [address] Blood 11/30/2024 9:36 AM SLOTTER OPERATOR 12/03/2024 9:52 AM CDT us Kyle Chiu MD LAB MICROBIOLOGY - GENERAL OR DERABLES Final Result Performing Organization Address City/State/ZIP [place] Phone Number [place] [address] [facility] Department [place] [address] from Last 3 Months Insurance MEDICARE [employer] SENIOR SUPPLEMENT MEDICARE [employer] SENIOR SUPPLEMENT MEDICARE [employer] SENIOR SUPPLEMENT MEDICARE [employer] SENIOR SUPPLEMENT Care Teams Programming Director Relationship Specialty Start Date End Date Kyle Chiu MD PCP - General Internal Medicine 09/20/24
[2025-02-19 22:55] VITALS: BP 145/66; PULSE 87; RESP 18; TEMP 36.9; O2SAT 99
[2025-02-19 23:08] VITALS: O2SAT 98
== END 2025-02-19 23:12 | disposition home or self-care (01) ==
PROVIDERS: Emergency Medicine; Emergency Provider Student in an Organized Health Care Education/Training Program
DX: R07.89 Other chest pain (principal); I25.10 Atherosclerotic heart disease of native coronary artery without angina pectoris; I10 Essential (primary) hypertension; F03.90 Unspecified dementia, unspecified severity, without behavioral disturbance, psychotic disturbance, mood disturbance, and anxiety; Z95.5 Presence of coronary angioplasty implant and graft; Z95.1 Presence of aortocoronary bypass graft; R94.31 Abnormal electrocardiogram [ECG] [EKG]
CPT/HCPCS: 36415; 71046; 80053; 83690; 84484; 85025; 85610; 85730; 93005; 99284